=== PATIENT | female | born 1995 | race Caucasian/White ===

== ENCOUNTER 2020-06-29 03:13 | Emergency (ER) | payer OTHER ==
[~2020-06-29] VITALS: Ht 157.5 cm; Wt 54.4 kg
[2020-06-29 03:46] VITALS: Ht 157.5 cm; Wt 54.4 kg
[2020-06-29 03:52] VITALS: BP 116/71
== END 2020-06-29 03:52 ==
LOC: ED 03:13
DX: Z02.89 Encounter for other administrative examinations (principal)